=== PATIENT | female | born 1995 | race Two or more races ===

== ENCOUNTER 2016-11-16 19:30 | Emergency (ER) | payer OTHER | END 2016-11-16 19:45 | disposition home or self-care (01) | LOC: CFTX 19:30 | DX: S99.922A Unspecified injury of left foot, initial encounter (principal); S53.402A Unspecified sprain of left elbow, initial encounter; V49.40XA Driver injured in collision with unspecified motor vehicles in traffic accident, initial encounter; Y93.89 Activity, other specified; Y92.410 Unspecified street and highway as the place of occurrence of the external cause | CPT/HCPCS: 99283 ==